=== PATIENT | male | born 1950 | race African-American/Black ===

== ENCOUNTER 2020-06-05 16:43 | Emergency (ER) | payer OTHER ==
[~2020-06-05] VITALS: Ht 175.3 cm; Wt 113.4 kg
[~2020-06-05 16:43] MED LIST: LISI-600 PO; OMEP20CA11 PO; TAMS-11 PO
[2020-06-05 16:57] VITALS: BP_SYST 141
[2020-06-05] MEDS ORDERED: KETOROLAC TROMETHAMINE 30 MG VIAL IM ONE (17:30)
[2020-06-05 17:45] VITALS: BP_SYST 141
== END 2020-06-05 17:35 | disposition home or self-care (01) ==
LOC: SED 16:43
DX: L02.211 Cutaneous abscess of abdominal wall (principal); Z88.6 Allergy status to analgesic agent; Z79.899 Other long term (current) drug therapy
CPT/HCPCS: 96372; 99283; J1885

== ENCOUNTER 2020-07-05 11:08 | Emergency (ER) | payer OTHER ==
[~2020-07-05] VITALS: Ht 175.3 cm; Wt 113.9 kg
[2020-07-05 11:21] VITALS: BP_SYST 141
[2020-07-05] MEDS ORDERED: LIDOCAINE 1% 10 MG/ML, 20 ML MDV INJ ONE (11:45)
[2020-07-05 13:10] VITALS: BP_SYST 141
== END 2020-07-05 13:11 | disposition home or self-care (01) ==
LOC: SED 11:08
DX: L03.011 Cellulitis of right finger (principal); R03.0 Elevated blood-pressure reading, without diagnosis of hypertension; Z88.6 Allergy status to analgesic agent
CPT/HCPCS: 99283

== ENCOUNTER 2020-07-25 14:56 | Emergency (ER) | payer OTHER ==
[~2020-07-25] VITALS: Ht 175.3 cm; Wt 111.1 kg
[~2020-07-25 14:56] MED LIST changes: -OMEP20CA11 PO; +OMEP20CA15 PO
--- NOTE | 2020-07-25 15:32 | NUR ---
Patient to ER bed 08 to gown for evaluation. Side rails up. Report given to GALE Miramontes
[2020-07-25 15:35] VITALS: BP_SYST 142
--- NOTE | 2020-07-25 15:38 | NUR ---
RECEIVED AND IN ROOM, PT HERE FOR C/O RT FLANK PAIN. SUDDEN ONSET THIS AM DENIES CP/SOB/FEVER/CHILLS. RESP UNLABORED, SKIN WARM AND DRY. GUARDED GAIT
--- NOTE | 2020-07-25 15:40 | NUR ---
Pt came to ER for R flank pain 8/10 describes sharp in nature. Pt resting, VSS, awaiting MD at this time.
--- NOTE | 2020-07-25 16:10 | NUR ---
DR MARS IN TO ASSESS
[2020-07-25] MEDS: HYDROcodone/ACETAMIN 10-325 MG TAB PO ONE (16:17)
[2020-07-25] MEDS: fentaNYL CITRATE/PF 100 MCG/2 ML AMP IVP ONE (16:19)
[2020-07-25] MEDS: NACL 0.9% 1,000 ML IV ONE (16:20)
--- NOTE | 2020-07-25 16:27 | NUR ---
Note undone in ED - 07/25/20 at 1628 by MONICA Patient to be transferred to [facility]. Is being transferred due to higher level of care. Receiving facility has accepting physician and available space. ER physician has signed transfer form. Patient or responsible democrat has agreed to transfer and signed form. Patient belongings inventoried and will be sent with patient. Copy of nursing notes, lab reports, EKG, Physicians Orders and X-rays to be sent with patient. Report called to RN at receiving facility. .
[2020-07-25 16:31] LABS: BASOPHILS % (AUTO) 0.9 % (0.0-2.0); EOSINOPHILS # (AUTO) 0.1 K/uL (0.0-0.4); EOSINOPHILS % (AUTO) 1.7 % (0.0-4.0); HEMATOCRIT 35.3 % (36-54); HEMOGLOBIN 11.6 g/dL (14.0-18.0); LYMPHOCYTES # (AUTO) 2.2 K/uL (1.0-5.5); LYMPHOCYTES % (AUTO) 43.4 % (20.5-51.5); MEAN CORPUSCULAR HEMOGLOBIN 27 pg (27-31); MEAN CORPUSCULAR HGB CONC 33 % (32-36); MEAN CORPUSCULAR VOLUME 83 fL (79.0-98.0); MONOCYTES # (AUTO) 0.5 K/uL (0.0-1.0); NEUTROPHILS # (AUTO) 2.3 K/uL (1.8-7.7); PLATELET COUNT (AUTO) 169 K/uL (130-430); RED BLOOD CELL COUNT(AUTO) 4.24 MIL/uL (4.2-6.2); RED CELL DISTRIBUTION WIDTH 14.4 % (9.0-15.0); WHITE BLOOD COUNT (AUTO) 5.2 K/uL (4.8-10.8)
--- NOTE | 2020-07-25 16:43 | NUR ---
PAIN FREE, RESP UNLABORED, SKIN WARM AND DRY. CALM, ALERT, NO COMPLAINTS, RESULTS PENDING
[2020-07-25 16:46] LABS: BILIRUBIN,URINE NEGATIVE (NEGATIVE); BLOOD, URINE NEGATIVE (NEGATIVE); COLOR,URINE YELLOW (YELLOW); GLUCOSE,URINE NEGATIVE (NEGATIVE); KETONES,URINE NEGATIVE (NEGATIVE); LEUKOCYTE ESTERASE ,URINE NEGATIVE (NEGATIVE); NITRITE, URINE NEGATIVE (NEGATIVE); PROTEIN URINE NEGATIVE (NEGATIVE); UROBILINOGEN,URINE 0.2 (0.2-1.0)
[2020-07-25 16:48] LABS: CALCIUM 8.5 mg/dL (8.4-11.0); CREATININE 1.09 mg/dL (0.55-1.30); POTASSIUM 4.1 mmol/L (3.5-5.1)
[2020-07-25 16:55] LABS: CLARITY/URINE SLIGHTLY HAZY (CLEAR)
[2020-07-25 16:55] LABS: ALBUMIN 3.6 g/dL (3.4-4.8); TOTAL BILIRUBIN 0.3 mg/dL (0.0-1.0)
--- NOTE | 2020-07-25 17:57 | NUR ---
CONSENT SIGNED FOR CT W/CONTRAST. OFF UNIT WITH TECH
[2020-07-25] MEDS ORDERED: IOHEXOL 350 mgI/mL, 150 ML INFUS..BTL IV ONE (18:14)
--- NOTE | 2020-07-25 19:17 | NUR ---
DR MARS IN TO REASSESS AND UPDATE PT W/RESULTS
[2020-07-25 19:18] VITALS: BP_SYST 125
--- NOTE | 2020-07-25 19:19 | NUR ---
Patient given written and verbal discharge instructions and verbalizes understanding. ER MD discussed with patient the results and treatment provided. Patient in stable condition. ID arm band removed. IV catheter removed intact and dressing applied, no active bleeding. Rx of TRAMADOL/IBU given. Patient educated on pain management and to follow up with PMD. Pain Scale 2/10 Opportunity for questions provided and answered. Medication side effect fact sheet provided.
--- NOTE | 2020-07-25 19:38 | NUR ---
OFF UNIT STEADY IN [facility], NO DYSPNEA
== END 2020-07-25 19:19 | disposition home or self-care (01) ==
LOC: SED 14:56
DX: R10.11 Right upper quadrant pain (principal); Z88.6 Allergy status to analgesic agent; Z79.899 Other long term (current) drug therapy
CPT/HCPCS: 36415; 71045; 71275; 72191; 74175; 76700; 80053; 81003; 82550; 83690; 83880; 84484; 85025; 93005; 96361; 96374; 99285; J3010; J7030; Q9967

== ENCOUNTER 2020-08-24 06:12 | Emergency (ER) | payer OTHER ==
[~2020-08-24] VITALS: Ht 175.3 cm; Wt 112.0 kg
--- NOTE | 2020-08-24 06:20 | NUR ---
Patient to ER bed 6 to gown for evaluation. Side rails up.
[2020-08-24 06:21] VITALS: BP_SYST 141
--- NOTE | 2020-08-24 06:22 | NUR ---
ER at bedside examining patient.
--- NOTE | 2020-08-24 06:24 | NUR ---
Pt presents to the ER c/o scrotum pain x yesterday. Pt reports pain from left leg up to groin. Pt has been seen in ER [facility] for similar symptoms. Denies pain upon urination, hematuria. Pt reports medications provided in last visit has only given slight relief.
[2020-08-24] MEDS ORDERED: IBUPROFEN 800 MG TABLET PO ONE (06:45)
[2020-08-24] MEDS ORDERED: SULFAMETHOXAZOLE/TRIMETHOPR DS 1 TABLET PO ONE (06:45)
[2020-08-24 06:56] VITALS: BP_SYST 141
--- NOTE | 2020-08-24 06:56 | NUR ---
Patient given written and verbal discharge instructions and verbalizes understanding. ER MD discussed with patient the results and treatment provided. Patient in stable condition. ID arm band removed. Rx of MUPIROCIN, BACTRIM, KEFLEX, TRAMADOL, TYLENOL given. Patient educated on pain management and to follow up with PMD. Opportunity for questions provided and answered. Medication side effect fact sheet provided.
[2020-08-24] MEDS ORDERED: ACETAMINOPHEN 500 MG TABLET PO ONE (07:00)
[2020-08-24] MEDS ORDERED: ACETAMINOPHEN 500 MG TABLET ONE (07:13)
== END 2020-08-24 06:56 | disposition home or self-care (01) ==
LOC: SED 06:12
DX: N49.2 Inflammatory disorders of scrotum (principal); R03.0 Elevated blood-pressure reading, without diagnosis of hypertension; Z88.6 Allergy status to analgesic agent
CPT/HCPCS: 99283